=== PATIENT | male | born 1965 | race Caucasian/White ===

== ENCOUNTER 2017-06-30 09:10 | Outpatient (CLI) | payer BC ==
[2017-06-30] MEDS ORDERED: BARIUM SULFATE 135 ML SUSP.RECON (E-Z-HD) PO ONE (09:32)
== END 2017-06-30 19:18 | disposition home or self-care (01) ==
LOC: SRD 09:10
PROVIDERS: ATTEND Otolaryngology Plastic Surgery within the Head & Neck
DX: R05 Cough (principal)
CPT/HCPCS: 74220-TC